=== PATIENT | female | born 1975 | race Caucasian/White ===

== ENCOUNTER 2018-08-09 17:02 | Emergency (ER) | payer OTHER ==
[~2018-08-09] VITALS: Ht 175.3 cm; Wt 68.0 kg
[2018-08-09 17:45] VITALS: BP 138/87
[2018-08-09] MEDS ORDERED: SILV20CR14 TP (18:46)
[2018-08-09] MEDS ORDERED: HYDR-2765 PO (18:46)
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
[2018-08-09] MEDS ORDERED: HYDROcodone/APAP 7.5/325MG 1 TAB TABLET PO ONE (19:00)
[2018-08-09] MEDS ORDERED: silver sulfADIAZINE 1% CREAM 25GM TUBE. TP ONE (19:00)
== END 2018-08-09 18:59 | disposition home or self-care (01) ==
LOC: ER 17:02
DX: T23.232A Burn of second degree of multiple left fingers (nail), not including thumb, initial encounter (principal); W29.2XXA Contact with other powered household machinery, initial encounter; Y93.H2 Activity, gardening and landscaping; Y92.89 Other specified places as the place of occurrence of the external cause; Y99.8 Other external cause status
CPT/HCPCS: 16020; 99284-25